=== PATIENT | female | born 1940 | race Caucasian/White ===

== ENCOUNTER 2017-12-16 15:40 | Emergency (ER) | payer MEDICARE, BC ==
[~2017-12-16] VITALS: Ht 165.1 cm; Wt 81.6 kg
== END 2017-12-16 17:35 | disposition home or self-care (01) ==
LOC: FSED 15:40
DX: S82.52XA Displaced fracture of medial malleolus of left tibia, initial encounter for closed fracture (principal); Y93.01 Activity, walking, marching and hiking; Y92.008 Other place in unspecified non-institutional (private) residence as the place of occurrence of the external cause
CPT/HCPCS: 99283

== ENCOUNTER 2018-04-25 11:00 | Outpatient (RCR) | payer MEDICARE, BC | END 2018-04-30 | LOC: PT 11:00 | PROVIDERS: ATTEND Specialist | DX: M25.571 Pain in right ankle and joints of right foot (principal); M25.671 Stiffness of right ankle, not elsewhere classified; R60.0 Localized edema; R26.2 Difficulty in walking, not elsewhere classified; M62.81 Muscle weakness (generalized) | CPT/HCPCS: 97110 ×10; 97140 ×2; 97161; G8978; G8979 ×2; G8980 ==